=== PATIENT | female | born 1960 | race African-American/Black ===

== ENCOUNTER 2024-12-21 07:01 | Emergency (ER) | payer MEDICAID ==
[~2024-12-21] VITALS: Ht 157.5 cm; Wt 91.0 kg
[2024-12-21 07:24] VITALS: O2SAT 98
[2024-12-21] MEDS ORDERED: SODI1KIT NS (07:56)
[2024-12-21] MEDS ORDERED: AZIT250T12 MT (07:56)
[2024-12-21] MEDS ORDERED: ACET-2708 MT (07:56)
[2024-12-21] MEDS ORDERED: IBUP-2028 MT (07:56)
[2024-12-21] MEDS ORDERED: BROM118S47 PO (07:56)
[2024-12-21] MEDS ORDERED: FLUT9.9S BOTHNSTRLS (07:56)
[2024-12-21 08:15] VITALS: TEMP 36.8; O2SAT 98
[2024-12-21 08:23] VITALS: BP 136/84; PULSE 79; RESP 16
[2024-12-21] MEDS: KETOROLAC 30MG/ML VIAL IM ONE (08:23)
== END 2024-12-21 08:27 | disposition home or self-care (01) ==
LOC: ER 07:01
DX: J32.8 Other chronic sinusitis (principal); B96.89 Other specified bacterial agents as the cause of diseases classified elsewhere
CPT/HCPCS: 99283; 96372; J1885

== ENCOUNTER 2025-05-20 06:10 | Emergency (ER) | payer MEDICAID ==
[~2025-05-20] VITALS: Ht 167.6 cm; Wt 95.0 kg
[~2025-05-20 06:10] MED LIST: ACET-2708 MT; AZIT250T12 MT; BROM118S47 PO; FLUT9.9S BOTHNSTRLS; IBUP-2028 MT; SODI1KIT NS
[2025-05-20 06:33] VITALS: O2SAT 99
[2025-05-20 07:20] LABS: BASOPHILS % 0.8 % (0.0-2.0); EOSINOPHILS % 5.6 % (0.0-5.0); HEMATOCRIT. 39.4 % (36.0-48.0); HEMOGLOBIN. 12.6 g/dL (12.0-16.0); LYMPHOCYTES % 37.5 % (20.0-50.0); MEAN PLATELET VOLUME 8.7 fl (7.4-10.4); MONOCYTES % 8.0 % (2.0-8.0); NEUTROPHILS % 48.1 % (40.0-76.0); PLATELET 253 x1000/uL (130-400); RED BLOOD CELL COUNT 4.99 mill/uL (4.2-5.4); RED CELL DISTRIBUTION WIDTH 14.3 % (11.6-14.6)
[2025-05-20 07:27] LABS: CLARITY URINE CLEAR (CLEAR); COLOR URINE YELLOW (YELLOW); GLUCOSE URINE NEGATIVE (NEGATIVE); KETONES URINE NEGATIVE (NEGATIVE); LEUKOCYTE ESTERASE URINE NEGATIVE (NEGATIVE); NITRITE URINE NEGATIVE (NEGATIVE); OCCULT BLOOD URINE NEGATIVE (NEGATIVE); PH URINE 5.5 (4.5-8.0); PROTEIN URINE NEGATIVE (NEGATIVE); SPECIFIC GRAVITY URINE 1.027 (1.005-1.030); UROBILINOGEN URINE 0.2 E.U./dL (0.2-1.0)
[2025-05-20 07:34] LABS: CREATININE 0.9 mg/dL (0.6-1.0); UREA NITROGEN BLOOD 14 mg/dL (9-23)
[2025-05-20 07:35] LABS: ASPARTATE AMINOTRANSFERASE 19 IU/L (<34)
[2025-05-20 07:36] LABS: BILIRUBIN TOTAL 0.5 mg/dL (0.1-1.0); PROTEIN TOTAL 7.3 g/dL (6.0-8.3)
[2025-05-20 08:59] VITALS: BP 145/84; PULSE 63; RESP 16; TEMP 36.5; O2SAT 100
== END 2025-05-20 09:03 | disposition home or self-care (01) ==
LOC: ER 06:10
DX: K80.20 Calculus of gallbladder without cholecystitis without obstruction (principal); I10 Essential (primary) hypertension; Z79.899 Other long term (current) drug therapy
CPT/HCPCS: 36415; 74176; 80053; 81003; 85025; 99284

== ENCOUNTER 2025-10-19 11:58 | Emergency (ER) | payer SELFPAY ==
[~2025-10-19] VITALS: Ht 162.6 cm; Wt 82.0 kg
[2025-10-19 12:04] VITALS: O2SAT 100
[2025-10-19 12:44] LABS: BASOPHILS % 0.6 % (0.0-2.0); EOSINOPHILS % 5.1 % (0.0-5.0); HEMATOCRIT. 39.0 % (36.0-48.0); HEMOGLOBIN. 12.1 g/dL (12.0-16.0); LYMPHOCYTES % 35.0 % (20.0-50.0); MEAN PLATELET VOLUME 8.8 fl (7.4-10.4); MONOCYTES % 7.1 % (2.0-8.0); NEUTROPHILS % 52.2 % (40.0-76.0); PLATELET 291 x1000/uL (130-400); RED BLOOD CELL COUNT 4.86 mill/uL (4.2-5.4); RED CELL DISTRIBUTION WIDTH 13.9 % (11.6-14.6)
[2025-10-19 12:51] LABS: CREATININE 0.8 mg/dL (0.6-1.0); UREA NITROGEN BLOOD 7 mg/dL (9-23)
[2025-10-19 12:52] LABS: PROTEIN TOTAL 7.3 g/dL (6.0-8.3)
[2025-10-19 12:54] LABS: ASPARTATE AMINOTRANSFERASE 19 IU/L (<34); BILIRUBIN DIRECT 0.1 mg/dL (<=3.0); BILIRUBIN TOTAL 0.5 mg/dL (0.1-1.0)
[2025-10-19 13:14] LABS: CLARITY URINE CLEAR (CLEAR); COLOR URINE YELLOW (YELLOW); GLUCOSE URINE NEGATIVE (NEGATIVE); KETONES URINE NEGATIVE (NEGATIVE); LEUKOCYTE ESTERASE URINE NEGATIVE (NEGATIVE); NITRITE URINE NEGATIVE (NEGATIVE); OCCULT BLOOD URINE NEGATIVE (NEGATIVE); PH URINE 5.5 (4.5-8.0); PROTEIN URINE NEGATIVE (NEGATIVE); SPECIFIC GRAVITY URINE 1.012 (1.005-1.030); UROBILINOGEN URINE 0.2 E.U./dL (0.2-1.0)
[2025-10-19] MEDS ORDERED: ONDA-239 PO (14:27)
[2025-10-19] MEDS ORDERED: AMOX1TAB16 MT (14:27)
[2025-10-19 14:51] VITALS: BP 154/86; PULSE 71; RESP 16; TEMP 36.9; O2SAT 100
== END 2025-10-19 14:54 | disposition home or self-care (01) ==
LOC: ER 11:58
DX: K56.699 Other intestinal obstruction unspecified as to partial versus complete obstruction (principal); K80.20 Calculus of gallbladder without cholecystitis without obstruction; I10 Essential (primary) hypertension; Z87.442 Personal history of urinary calculi
CPT/HCPCS: 36415; 74176; 80048; 80076; 81003; 85025; 93005; 99284